=== PATIENT | female | born 1950 | race Caucasian/White ===

== ENCOUNTER → 2017-08-18 09:00 | Outpatient (CLI) | payer MEDICARE, OTHER, SELFPAY ==
--- NOTE | 2017-08-18 | DI.MRI.S_ITS ---
PROCEDURE: MR PELVIS WO CON INDICATIONS: RIGHT SIDE SCIATICA REOCCURING FRACTURES TECHNIQUE: Noncontrast coronal and axial T1 spin echo and STIR through the bony pelvis. COMPARISON: None. FINDINGS: Image quality: Excellent. Bones: Diffusely heterogeneous high STIR signal intensity is seen within the sacrum and bilateral iliac wings. No fractures identified. The visualized lower lumbar spine appears normally aligned. Tendons: The gluteus medius and minimus tendons appear intact, without associated muscle atrophy. The nearby proximal iliotibial band also appears intact. The iliopsoas tendon appears intact, without adjacent bursal fluid collections or evidence for impingement syndrome. The origin of the hamstring tendon is intact at the ischial tuberosity, as well as the associated sacrotuberous ligament. The straight and reflected heads of the rectus femoris muscle origin appear intact, as well as the conjoint tendon. Soft tissues: Visualized muscles demonstrate normal bulk and internal signal. No joint effusions. No free pelvic fluid. Bladder wall thickness is normal. Genitourinary structures and bowel loops appear normal where visualized. IMPRESSION: 1. Diffusely heterogeneous marrow signal within the osseous structures of the pelvis. While this may be related to senescent changes and atypical appearance of osteopenia, differential considerations also include a marrow infiltrating process. Clinical correlation recommended. Dictated by: Shyanne Faria M.D. on 08/18/2017 at 10:55 Approved by: Shyanne Faria M.D. on 08/18/2017 at 11:00
== END ==
PROVIDERS: Visit Provider Internal Medicine
DX: M54.32 Sciatica, left side (principal); R93.7 Abnormal findings on diagnostic imaging of other parts of musculoskeletal system
CPT/HCPCS: 72195; 77080; 77081

== ENCOUNTER → 2018-06-13 14:36 | Outpatient (CLI) | payer MEDICARE, OTHER, SELFPAY ==
[2018-06-13 16:40] LABS: Lactate Dehydrogenase 379 U/L (313-618); Magnesium 1.5 mg/dL (1.6-2.3); Phosphorous 2.5 mg/dL (2.8-4.1)
[2018-06-13 16:56] LABS: Vitamin D 25 Hydroxy (D3) 88.4 ng/mL (30.0-100.0)
[2018-06-15 13:49] LABS: Free Kappa Light Chain 32.4 mg/L (3.3-19.4); Free Kappa/ Lambda Ratio 0.39 (0.26-1.65); Free Lambda 83.8 mg/L (5.7-26.3)
[2018-06-15 18:08] LABS: Albumin 4.2 g/dL (3.8-4.8); Alpha 1 Globulin 0.3 g/dL (0.2-0.3); Alpha 2 Globulin 0.6 g/dL (0.5-0.9); Beta 1 Globulin 0.4 g/dL (0.4-0.6); Gamma Globulin 0.8 g/dL (0.8-1.7); Protein, Total 6.6 g/dL (6.1-8.1)
[2018-06-16 15:20] LABS: 1 25 Dihydroxy Vitamin D 27 pg/mL (18-72)
[2018-06-16 16:38] LABS: Parathyroid Hormone Int 39 pg/mL (14-64)
[2018-06-16 16:45] LABS: Erythropoietin 23.7 mIU/mL (2.6-18.5)
== END ==
PROVIDERS: PCP Internal Medicine; Visit Provider Internal Medicine Hematology & Oncology
DX: N64.4 Mastodynia (principal); N64.3 Galactorrhea not associated with childbirth; D75.1 Secondary polycythemia; E83.52 Hypercalcemia; Z85.528 Personal history of other malignant neoplasm of kidney
CPT/HCPCS: 36415; 81270; 82306; 82652; 82668; 82784; 83615; 83735; 83883; 83970; 84100; 84155; 84165; 86334

== ENCOUNTER → 2018-06-29 13:04 | Outpatient (CLI) | payer MEDICARE, OTHER, SELFPAY ==
--- NOTE | 2018-06-29 | DI.MRI.S_ITS ---
PROCEDURE: MR THORACIC SPINE WO CON INDICATIONS: Galactorrhea not associated with childbirth. Kidney cancer. TECHNIQUE: Noncontrast sagittal T1 spine echo and T2 fast spin echo, sagittal STIR, axial T1 and T2 fast spin echo through the thoracic spine. COMPARISON: [facility], MR, MR CERVICAL SPINE WO CON, 06/29/2018, 13:19. [facility], CR, CHEST 1 VIEW, 05/05/2012, 20:34. [facility], CT, PE STUDY (CTA CHEST), 02/22/2011, 19:58. FINDINGS: Image quality: Excellent. Alignment and Curvature: There is normal bony alignment. Bone Marrow: Marrow is of normal overall signal. No acute vertebral body compression fractures. Scattered foci are seen, which are hyperintense on T1-weighted and T2-weighted imaging, which are most consistent with benign vertebral body hemangiomas. Spinal Cord: Visualized spinal cord is normal in size and signal. Paraspinous Soft Tissues: No paravertebral masses. Incidental note is made of bilateral renal cysts, including a 2.9 cm cyst at the inferior pole of the right kidney. Miscellaneous: Lumbar spine postoperative change is partially seen. Mild age-appropriate degenerative changes are seen, with scattered levels of mild disc space narrowing with associated endplate irregularity. On axial images, central canal and foramina appear widely patent at all scanned levels. IMPRESSION: No significant thoracic spine abnormality is seen by MRI for age. Dictated by: Fareed Boston M.D. on 06/29/2018 at 14:49 Approved by: Fareed Boston M.D. on 06/29/2018 at 14:51
--- NOTE | 2018-06-29 | DI.MRI.S_ITS ---
PROCEDURE: MR CERVICAL SPINE WO CON INDICATIONS: Galactorrhea not associated with childbirth. History of kidney cancer. TECHNIQUE: Noncontrast sagittal T1 spin echo and T2 fast spin echo, sagittal STIR, foraminal oblique sagittal T2 fast spin echo, and axial gradient echo and T2 fast spin echo through the cervical spine. COMPARISON: [facility], CT, C-SPINE WITHOUT CONTRAST, 05/21/2014, 21:46. [facility], MR, MR THORACIC SPINE WO CON, 06/29/2018, 13:45. FINDINGS: Image quality: Diagnostic, with note made of motion artifact. Alignment and Curvature: There is reversal of the normal cervical lordosis. Minimal anterolisthesis is seen at C5-C6. Bone Marrow: Marrow demonstrates normal overall signal. Spinal Cord: Visualized spinal cord has normal size and signal. No cerebellar tonsillar herniation. Paraspinous Soft Tissues: No paravertebral masses. Prevertebral soft tissues are normal in thickness. C2-C3: Mild loss of disc height is seen. Loss of disc signal is seen. Mild to moderate disc osteophyte complex is seen. There is moderate to severe left-sided and moderate right-sided neural foraminal narrowing seen. Mild central canal narrowing is seen. C3-C4: Postoperative changes are seen at this level, with a fusion plate anteriorly. There is associated susceptibility artifact. Moderate generalized disc osteophyte complex is seen. Mild to moderate facet hypertrophy is seen. Mild bilateral neural foraminal narrowing is seen. Xfyg-[id number] central canal narrowing is seen. C4-C5: Moderate loss of disc height is seen. Loss of disc signal is seen. Moderate generalized disc osteophyte complex is seen. There is moderate right-sided and moderate left-sided facet hypertrophy seen. There is moderate to severe bilateral neural foraminal narrowing seen. At least moderate central canal narrowing is seen, with associated mass effect upon the ventral spinal cord. C5-C6: At least moderate loss of disc height is seen. Moderate generalized disc osteophyte complex is seen. Moderate facet joint hypertrophy is seen. There is moderate to severe bilateral neural foraminal narrowing seen. Moderate central canal narrowing is seen. C6-C7: Moderate to severe loss of disc height and disc signal are seen. Moderate to prominent disc osteophyte complex is seen, which is eccentric to the left. Uncovertebral joint hypertrophy is seen at this level. Mild to moderate facet hypertrophy is seen. There is moderate to severe bilateral neural foraminal narrowing seen, left worse than right. Moderate central canal narrowing is seen. There is associated mild mass effect upon the ventral spinal cord. C7-T1: Moderate to severe loss of disc height and disc signal are seen. Moderate to prominent disc osteophyte complex is seen. Gexa-nm-fjktxpuu facet hypertrophy is seen. There is moderate to severe bilateral neural foraminal narrowing seen. Bcgg-qs-sbhqonen central canal narrowing is seen. IMPRESSION: Multiple levels of cervical spine degenerative change are seen, including several levels of moderate to severe bilateral neural foraminal narrowing. Anterior spinal fixation hardware is seen at C3-C4. Dictated by: Fareed Boston M.D. on 06/29/2018 at 14:42 Approved by: Fareed Boston M.D. on 06/29/2018 at 14:49
== END ==
PROVIDERS: PCP Internal Medicine; Visit Provider Internal Medicine Hematology & Oncology
DX: M47.812 Spondylosis without myelopathy or radiculopathy, cervical region (principal); M48.02 Spinal stenosis, cervical region; N64.3 Galactorrhea not associated with childbirth; Z85.528 Personal history of other malignant neoplasm of kidney; Z98.1 Arthrodesis status
CPT/HCPCS: 72141; 72146

== ENCOUNTER → 2018-08-02 13:14 | Outpatient (CLI) | payer MEDICARE, OTHER, SELFPAY ==
--- NOTE | 2018-08-02 | DI.CT.S_ITS ---
PROCEDURE: CT ABDOMEN WO/W CON INDICATIONS: HISTORY OF OTHER MALIGNANT NEOPLASM OF KIDNEY TECHNIQUE: Optional 5 mm thick noncontrast images acquired from the diaphragm to the iliac crests. After the administration of intravenous contrast, 5 mm thick images again acquired from the diaphragm to the iliac crests in the arterial and urographic phases. 5 mm thick coronal and sagittal reformats were then acquired. For radiation dose reduction, the following was used: automated exposure control, adjustment of mA and/or kV according to patient size. COMPARISON: [facility], CT, PE STUDY (CTA CHEST), 02/22/2011, 19:58. FINDINGS: Image quality: Excellent. Lung bases: Lung bases are clear. Heart size is normal. Genitourinary: Previously seen enhancing or hyperdense lesion involving the anterior cortex of left kidney is no longer seen. There is a small cystic appearing focus and mild scarring in this region. Additional simple appearing bilateral renal cysts are present measuring up to 3.2 cm in the right inferior pole. No hydronephrosis. No perinephric stranding identified. No definite intraluminal filling defect seen within the visualized ureters and renal collecting systems. Other solid organs: Liver is normal in size and enhancement. Nonspecific subcentimeter hypodensity seen in the right lobe on image 15 series 5. Gallbladder unremarkable. Biliary system is non dilated. Pancreas enhances normally. Spleen is normal in size and enhancement. No adrenal nodules. Peritoneum and bowel: Unenhanced bowel loops are normal in wall thickness and caliber. No free fluid or air. Nodes and vessels: No retroperitoneal or mesenteric adenopathy by size criteria. Aorta and inferior vena cava are normal in caliber. Bones: No suspicious bony lesions. No vertebral body compression fractures. Diffuse osteopenia. Posterior spinal instrumentation. Miscellaneous: No ventral hernias. IMPRESSION: Bilateral renal cortical scarring and atrophy, as well as multiple simple appearing cysts. An enhancing/hyperdense lesion present in the anterior cortex of the left kidney is no longer visualized, resolved since the prior study dated 02/22/11. Dictated by: Kade Daniels M.D. on 08/02/2018 at 15:32 Approved by: Kade Daniels M.D. on 08/02/2018 at 15:43
--- NOTE | 2018-08-02 | DI.MRI.S_ITS ---
PROCEDURE: MR HEAD/BRAIN WO/W CON INDICATIONS: HISTORY OF OTHER MALIGNANT NEOPLASM OF KIDNEY TECHNIQUE: Noncontrast axial T1 spin echo, axial T2 fast spin echo, sagittal and axial FLAIR, coronal T2 fast spin echo, axial gradient echo, axial diffusion and ADC through the brain. After the administration of contrast, axial and coronal T1 spin echo with fat saturation through the brain. COMPARISON: [facility], MR, BRAIN WITHOUT CONTRAST, 04/09/2008, 16:34. FINDINGS: Image quality: Diagnostic, with note made of motion artifact. CSF spaces: Basal cisterns are patent. No extra-axial fluid collections. Ventricles are normal in size and shape. Brain: In this patient with this given history, scrutiny is given to the pituitary gland. The limits of this stone protocol examination, no pituitary abnormality is detected in No midline shift. No intracranial bleeds or masses. No abnormal intracranial enhancement. There is cerebral volume loss for age. There is periventricular white matter chronic small vessel ischemic change. The brainstem appears normal. Diffusion-weighted images demonstrate no acute ischemic insults. No chronic ischemic insults. Normal intravascular flow voids are present. Note is made of a cavum septum pellucidum. When discovered in isolation, this is considered to be a developmental variant of no clinical consequence. Skull and face: Calvarial marrow is normal in signal. Orbits appear normal. Sinuses: Sinuses and mastoids appear clear. IMPRESSION: No imaging explanation is found for this patient's presenting symptoms. Dictated by: Fareed Boston M.D. on 08/02/2018 at 14:45 Approved by: Fareed Boston M.D. on 08/02/2018 at 14:47
[2018-08-02 13:50] LABS: Alanine Aminotransferase 23 IU/L (9-52); Albumin 4.3 g/dL (3.5-5.0); Albumin Globulin Ratio 1.4 (1.0-2.8); Alkaline Phosphatase 133 U/L (38-126); Aspartate Aminotransferase 26 IU/L (14-36); Bilirubin Total 0.7 mg/dL (0.2-1.3); Blood Urea Nitrogen 32 mg/dL (7-17); Carbon Dioxide 26 mmol/L (22-32); Chloride 101 mmol/L (98-107); Estimated Glomerular Filt Rate 55.1 mL/min (>60); Glucose 107 mg/dL (80-110); HEMOLYSIS 22 (0-50); Potassium 4.6 mmol/L (3.4-5.1); Sodium 137 mmol/L (137-145); Total Protein 7.3 g/dL (6.3-8.2)
== END ==
PROVIDERS: Family Provider Internal Medicine Nephrology; PCP Internal Medicine; Referring Provider Orthopaedic Surgery; Visit Provider Internal Medicine Hematology & Oncology
DX: D49.512 Neoplasm of unspecified behavior of left kidney (principal); N28.1 Cyst of kidney, acquired; D75.1 Secondary polycythemia; R56.9 Unspecified convulsions; Z85.528 Personal history of other malignant neoplasm of kidney
CPT/HCPCS: 36415; 70553; 74170; 80053; Q9967

== ENCOUNTER → 2020-10-02 10:14 | Outpatient (CLI) | payer MEDICARE, OTHER, SELFPAY ==
[2020-10-02 11:50] LABS: COVID19 -Nasal RAPID Negative (Negative)
== END ==
PROVIDERS: Family Provider Internal Medicine Nephrology; PCP Internal Medicine; Visit Provider Physician Assistant
DX: Z01.812 Encounter for preprocedural laboratory examination (principal); Z20.822 Contact with and (suspected) exposure to COVID-19
CPT/HCPCS: 87635; C9803

== ENCOUNTER 2020-10-04 11:26 | Day surgery (SDC) | payer MEDICARE, OTHER, SELFPAY ==
--- NOTE | 2020-10-04 | DI.RAD.S_ITS ---
PROCEDURE: XR ANKLE RT MIN 3V INDICATIONS: RIGHT ANKLE ORIF TECHNIQUE: Fluoroscopic images were obtained during an operative procedure and submitted for interpretation following the completion of the procedure. COMPARISON: [facility], CR, XR ANKLE 3+ VIEWS RIGHT, 09/20/2020, 22:00. [facility], CR, XR TIBIA FIBULA RIGHT, 09/26/2020, 15:35. [facility], CR, XR ANKLE 3+ VIEWS RIGHT, 09/26/2020, 15:37. [facility], CR, XR FOOT 3+ VIEWS RIGHT, 10/02/2020, 16:06. FINDINGS: These fluoroscopic images were performed for intraoperative localization. On these images, plate and screw fixation is seen right distal fibula. There is a syndesmotic screw. Two screws are also seen within the medial malleolus. There is improved anatomic alignment. Please correlate with intraoperative findings. IMPRESSION: Normal intraoperative examination. Dictated by: Fareed Boston M.D. on 10/04/2020 at 16:27 Approved by: Fareed Boston M.D. on 10/04/2020 at 16:28
[2020-10-04 12:32] VITALS: BP 154/79; PULSE 96; RESP 20; TEMP 37.3; O2SAT 96; BMI 18.6
[2020-10-04] MEDS: LACTATED RINGERS 1,000 ML 42 ML IV (13:04)
[2020-10-04] MEDS: ACETAMINOPHEN 325 MG TABLET 975 MG PO (13:07)
[2020-10-04] MEDS: CELECOXIB 200 MG CAPSULE 400 MG PO (13:07)
--- NOTE | 2020-10-04 15:07 | PM.PREOP ---
Pre-operative Note COVID-19 COVID-19 status: Negative Interval Note History & Physical reviewed/Exam performed by Physician: Yes Changes to H&P: No
[2020-10-04] MEDS: CEFAZOLIN 1 GM VIAL 2 GM IV (16:05)
--- NOTE | 2020-10-04 16:14 | PM.PROC.1 ---
Procedures Date/Time Date of procedure: 10/04/20 Time of procedure: 15:44 Nerve Block Time out performed: Yes Local anesthetic used: bupivacaine 0.5% Location of anesthetic used: RIGHT Amount of anesthesia used (mL): 15 Nerve blocks: peroneal (popliteal) Procedure successful: Yes Patient tolerated procedure: well and no complications Complications: none Additional comments: Popliteal nerve block performed for post-op pain control at surgeon request. Patient was positioned with IV, O2, monitors and rescue meds available. Prepped and timeout performed. Target identified with continuous ultrasound guidance. 15mL of bupivicaine 0.5% was injected perineurally with intermittent aspiration and injection. No blood, no paresthesias, no acute complications.
--- NOTE | 2020-10-04 16:15 | PM.PROC.1 ---
Procedures Date/Time Date of procedure: 10/04/20 Time of procedure: 15:47 Nerve Block Time out performed: Yes Local anesthetic used: bupivacaine 0.5% Location of anesthetic used: RIGHT Amount of anesthesia used (mL): 15 Nerve blocks: femoral (adductor canal) Procedure successful: Yes Patient tolerated procedure: well and no complications Complications: none Additional comments: Adductor canal nerve block performed for post-op pain control at surgeon request. Patient was positioned with IV, O2, monitors and rescue meds available. Prepped and timeout performed. Target identified with continuous ultrasound guidance. 15mL of bupivicaine 0.5% was injected perineurally with intermittent aspiration and injection. No blood, no paresthesias, no acute complications.
--- NOTE | 2020-10-04 16:57 | SUR.PREOP ---
Block start time [1541] . Monitoring initiated and maintained throughout procedure. Oxygen and medications given per anesthesiologist instructions. Patient remained stable throughout procedure, no adverse reactions noted. Block end time [1545].
--- NOTE | 2020-10-04 17:44 | PM.OP.1 ---
Operative Date/Time/Diagnoses Date of procedure: 10/04/20 Time of procedure: 16:20 Pre-op diagnosis: Right trimalleolar ankle fracture s82.851a Osteoporosis-with pathologic fracture Post-op diagnosis: same Procedure & Clinicians Procedure: 1. Open reduction internal fixation right trimalleolar ankle fracture without fixation posterior lip CPT code 16172 2. Open reduction internal fixation syndesmosis CPT code 15290 Same procedure as scheduled: Yes Indications: Patient is a 70-year-old female with multiple medical problems that sustained a nondisplaced ankle fracture that went on to displacement after week of weight-bearing. She is extremely osteoporotic and has a history of multiple fractures. Also has a history of epilepsy and takes chronic medication for this. She is indicated for operative reduction of her displaced trimalleolar ankle fracture to reduce the Marie is and allow healing with reduced risk of a malunion dysfunction. The risks and benefits of the procedure have been discussed with the patient even opportunity to ask questions. The risks of surgery include but are not limited to infection, malunion, nonunion, persistence of pain, damage to nerves and blood vessels, posttraumatic arthritis, DVT, PE, cardiopulmonary complications and . The patient expressed a thorough understanding of the risks and benefits of surgery and has elected to proceed. Consent was signed in the office. Her is her primary advertising coordinator. Surgeon: Sheeba Stokes Click Yes if Unassisted: Yes Anesthesia Type: General and Peripheral nerve block Operative Notes Findings: Displaced trimalleolar ankle fracture very small posterior malleolus fracture this was treated closed with syndesmotic fixation for additional stability. Ankle was extremely osteoporotic with very soft bone to even gloved finger touch. Therefore locking plate and screw fixation was indicated. Lateral malleolus fracture was reduced and stabilized with a 6 hole lateral locking plate from the Arthrex set. Medial malleolus was fixed with 2 cancellous screws. And a locking screw was placed through the syndesmosis for additional stability. There was almost no bite noted on drilling of the syndesmotic fixation therefore locking screw was selected. Closure Type: primary Specimen(s): none sent Prosthetic devices, grafts, tissues, transplants, or devices: Arthrex 6 hole lateral locking plate right locking screws distally and proximally. A cortical screw was attempted in the shaft but pulled directly out the locking screws were used in entirety. 2 x 4.0 cannulated screws medially for the medial malleolus fracture. Estimated Blood Loss (mL): 15 Blood products transfused: none Tourniquet time (min): 58 Procedure in detail: Procedure in detail: In the preoperative holding area, the appropriate limb and sites were marked, consent was again reviewed with the patient and all questions answered. Patient underwent a regional anesthetic block with the anesthesia team for postoperative pain control. The patient was brought to the operating room, placed on the operating table and given anesthetic. Following successful levels of anesthesia, the patient was appropriately padded, position secured to the table. Supine position. An SCD was placed on the contralateral leg. All bony prominences were well padded. A well-padded thigh tourniquet was placed. The surgical leg was then prepped and draped in the usual sterile fashion. A formal time-out procedure was completed confirming the patient, site and side of surgery and administration of appropriate preoperative antibiotics. All were in agreement. An Esmarch bandage was utilized to exsanguinate the limb and the tourniquet was raised on the thigh to 250 mmHg. Lateral incision was made just posterior to the fibula. Dissection was carried through the skin and subcutaneous tissue to the level of the fibula. The fracture was exposed and cleaned of debris. Fracture was reduced, restoring length rotation and anatomic alignment. This was an extremely osteoporotic distal fibula fracture the bone addended even to gloved finger touch. This was stabilized with 6 hole Arthrex locking lateral plate. Appropriate implant positioning was confirmed on intraoperative fluoro. Medial malleolus fixation: Attention was then turned to the medial side of the joint. A standard medial approach to the medial malleolus as it. The periosteum was reflected at the fracture site and this was cleaned and reduced with a pointed reduction clamp. Two parallel K-wires were then placed and alignment checked on x-ray to confirm adequate position. The wires were then sequentially overdrilled and (2) 4.0mm cannulated screws were placed. The reduction was stable. Syndesmosis stabilization: Attention was then turned to the syndesmosis. Since the posterior malleolus fracture was small this was treated closed. Therefore syndesmotic fixation was placed for additional stability in this osteoporotic patient. Drill was placed from the fibula through the tibia through 4 cortices and measured. There was almost no bite demonstrated going through the 4 cortices and it was felt that a a cortical screw would be extremely loose and nonfunctional therefore technique was switched to a locking screw. Unfortunately these plate only works with a locking guide in 1 direction therefore the locking guide was placed and this was read drilled. This was in a more posterior direction but did get bony purchase in the posterior part of the fibula which was felt to be adequate. A 40 mm locking screw was then placed. Stability was confirmed under fluoro. The wounds were irrigated. We were quite satisfied with result clinically and radiographically. The tourniquet was released, and hemostasis achieved. The deep tissue was closed with 2 O Vicryl. Subcutaneous tissue was closed with 4 0 Monocryl in the skin with 3 O nylon. A sterile bulky dressing and below knee splint were applied. All counts were correct. The patient was then awoken and transported to recovery room in good condition. There no known immediate complications from this procedure. Post-operative Condition: stable Disposition: PACU Plan for aftercare: Nonweightbearing right ankle. If healing well at 2 weeks may start some early weight-bearing but 1st 2 weeks should focus on elevation above the heart level as much as possible for wound healing and minimal foot down for transfers. But may rest foot on the ground for balance/transfer. Aspirin for DVT prophylaxis.
[2020-10-04 17:52] VITALS: BP 136/67; PULSE 90; RESP 16; TEMP 36.7; O2SAT 98
[2020-10-04 17:57] VITALS: BP 136/67; PULSE 93; RESP 14; O2SAT 99
== END 2020-10-04 18:28 | disposition home or self-care (01) ==
PROVIDERS: Family Provider Internal Medicine Nephrology; PCP Internal Medicine; Referring Provider Orthopaedic Surgery Foot and Ankle Surgery; Visit Provider Orthopaedic Surgery Foot and Ankle Surgery
PROC: 0SSF04Z Reposition Right Ankle Joint with Internal Fixation Device, Open Approach (ICD-10-PCS; CPT 27829; principal; 2020-10-04 13:15)
DX: S82.851A Displaced trimalleolar fracture of right lower leg, initial encounter for closed fracture (principal); M80.071A Age-related osteoporosis with current pathological fracture, right ankle and foot, initial encounter for fracture; G89.29 Other chronic pain; G40.909 Epilepsy, unspecified, not intractable, without status epilepticus; Z91.81 History of falling; K21.9 Gastro-esophageal reflux disease without esophagitis; Z87.310 Personal history of (healed) osteoporosis fracture
CPT/HCPCS: 27829; 64450; 73610; 76000; J0690; J1100; J2405; J2704; J3010

== ENCOUNTER 2021-01-26 15:18 | Emergency (ER) | payer MEDICARE, OTHER, SELFPAY ==
[2021-01-26] VITALS (24 sets, daily range): BP systolic 133–209; BP diastolic 56–100; PULSE 81–99; RESP 12–26; TEMP 36.9; O2SAT 87–100; BMI 17.4
--- NOTE | 2021-01-26 15:45 | DI.CT.S_ITS ---
PROCEDURE: CT STROKE INDICATIONS: right hemineglect with seizure TECHNIQUE: Noncontrast 4.5 mm thick angled axial sections acquired from the foramen magnum to the vertex, with coronal reformats. For radiation dose reduction, the following was used: automated exposure control, adjustment of mA and/or kV according to patient size. COMPARISON: None. FINDINGS: Image quality: There is extensive motion artifact limiting evaluation. CSF spaces: Basal cisterns are patent. No extra-axial fluid collections. There is mild cerebral volume loss, with resultant ventricular and sulcal prominence. Brain: There is an intraparenchymal hematoma within the left external capsule measuring up to approximately 3.6 x 1.8 cm in transverse dimension. No definite associated midline shift or transtentorial herniation. There are subcortical, periventricular and deep white matter hypodensities consistent with moderate chronic small vessel ischemic changes. The zuñiga-white matter junction appears preserved. There is intracranial internal carotid artery atherosclerosis. Skull and face: Calvarium and visualized facial bones appear intact, without suspicious lesions. Sinuses: Visualized sinuses and mastoids are clear. IMPRESSION: 1. Intraparenchymal hematoma demonstrated within the left external capsule suggestive of a hypertensive hemorrhage. Findings discussed with Dr. Collins on 01/26/2021 at 4:00 p.m.. 2. Moderate chronic white matter small vessel ischemic changes and mild cerebral volume loss. This study fulfills neurological imaging criteria for inclusion or exclusion of acute stroke therapies based on available published neurological guidelines. Dictated by: Warren Rod M.D. on 01/26/2021 at 15:59 Approved by: Warren Rod M.D. on 01/26/2021 at 16:03
--- NOTE | 2021-01-26 16:03 | ED.NEUROSD ---
HPI - Neuro Symptoms/Deficit <Treva Karina, DO - Last Filed: 01/26/21 18:44> General Chief Complaint: Neuro Symptoms/Deficit Stated Complaint: SEZUIRES LOST USE OF RIGHT SIDE Time Seen by Provider: 01/26/21 15:45 Source: patient Mode of arrival: Wheelchair Limitations: no limitations History of Present Illness HPI Narrative: Patient is a 70-year-old female history of seizures, hypertension, chronic pain presenting today after seizures. states that she had 2 seizures last night the 1st was at about 8:15 p.m. had a 2nd was at around 4:00 a.m.. He says since the 4:00 a.m. she really has not moved her right side she is extremely weak she remains confused. He said this is atypical for her. He said between the 2 seizures she was postictal but seem to be normal however they were sleeping. She does take aspirin daily but no anticoagulation. decided to bring her in when she really was not able to transfer in help with the bathroom. He said he has Carry her. She has some obvious right-sided deb-neglect and not moving her right side. On Anticoagulants: No Related Data Home Medications Medication Instructions Recorded Confirmed acyclovir 200 mg capsule (Zovirax) 200 mg PO Q DAY #0 07/15/10 01/26/21 esomeprazole magnesium 40 mg 40 mg PO BID #0 07/15/10 10/01/20 capsule,delayed release (Nexium) ethosuximide 250 mg capsule 250 mg PO BID #0 07/15/10 01/26/21 felbamate 400 mg tablet (Felbatol) 800 mg PO BID #0 07/15/10 01/26/21 acetaminophen 500 mg tablet 500 mg PO Q4H PRN #0 05/05/12 10/01/20 (Acetaminophen Extra Strength) esomeprazole magnesium 40 mg 20 mg PO DAILY #0 05/05/12 10/04/20 capsule,delayed release (Nexium) potassium chloride 10 mEq 10 meq PO QDAY #0 05/05/12 10/01/20 tablet,extended release amlodipine 10 mg tablet 10 mg PO DAILY 10/04/20 01/26/21 atorvastatin 20 mg tablet 20 mg PO DAILY 10/04/20 01/26/21 docusate sodium 100 mg capsule 100 mg PO BID 10/04/20 01/26/21 (Dulcolax Stool Softener (docusate)) duloxetine 60 mg capsule,delayed 60 mg PO DAILY 10/04/20 01/26/21 release naproxen sodium 220 mg capsule 220 mg PO BID 10/04/20 10/04/20 (Aleve) oxycodone 10 mg tablet,extended 1 mg PO BID 10/04/20 01/26/21 release,12 hr trazodone 50 mg tablet 25 mg PO DAILY 10/04/20 01/26/21 triamterene 37.5 1 cap PO DAILY 10/04/20 01/26/21 mg-hydrochlorothiazide 25 mg capsule Vitamin D3 Complete 3,000 PO DAILY 01/26/21 ascorbic acid (vitamin C) 1,000 mg 1,000 PO 01/26/21 capsule,extended release aspirin 81 mg tablet 81 mg PO DAILY 01/26/21 01/26/21 estradiol 0.05 mg/24 hr weekly 1 patch TRANSDERMAL QWEEK 01/26/21 01/26/21 transdermal patch omeprazole 20 mg capsule,delayed 20 mg PO DAILY 01/26/21 01/26/21 release vitamin B complex 1 cap PO DAILY 01/26/21 01/26/21 Allergies Allergy/AdvReac Type Severity Reaction Status Date / Time buprenorphine Allergy Severe ridgity Verified 10/04/20 12:14 From DEPAKOTE Allergy Severe SEIZURES Uncoded 06/30/17 12:08 From KLONOPIN Allergy Severe SEIZURES Uncoded 06/30/17 12:08 From TEGRETOL Allergy Severe SEIZURES Uncoded 06/30/17 12:08 LITHIUM Allergy Severe SEIZURES Uncoded 06/30/17 12:08 From SUBOXONE Allergy Mild Uncoded 06/30/17 12:08 MORPHINE Allergy Mild ITCH Uncoded 06/30/17 12:08 TAPE Allergy Mild RASH Uncoded 06/30/17 12:08 Review of Systems <Treva Collins DO - Last Filed: 01/26/21 18:44> Review of Systems ROS Unobtainable: Unobtainable due to medical condition Hematologic/Lymphatic On Anticoagulants: No Patient History <Treva Collins DO - Last Filed: 01/26/21 18:44> Medical History (Updated 01/26/21 @ 18:42 by Treva Collins DO) Anxiety Asthma Chronic back pain Depression HTN (hypertension) Renal cell carcinoma Seizures Skin cancer Vocal cord cancer Surgical History (Updated 10/01/20 @ 14:48 by Mya Brooks RN) History of bowel resection History of History of hysterectomy History of left nephrectomy History of right nephrectomy History of spinal surgery History of surgery Social History household members: spouse Smoking Status: Former smoker alcohol intake: never Smoking Status: Former smoker Substance Use Type: opiates Exam <Treva Collins DO - Last Filed: 01/26/21 18:44> Initial Vital Signs Initial Vital Signs: Vital Signs Temperature 98.4 F 01/26/21 15:47 Pulse Rate 86 01/26/21 15:47 Respiratory Rate 16 01/26/21 15:47 Blood Pressure 209/100 H 01/26/21 15:47 Pulse Oximetry 98 01/26/21 15:47 GENERAL: A thin 70-year-old female looking to left HEENT: Head atraumatic,EOMI, pupils reactive, right-sided facial droop CARDIOVASCULAR: Regular rate and rhythm without murmurs, rubs or gallops. RESPIRATORY: Breath sounds equal bilaterally, no wheezes rales or rhonchi. ABDOMEN: Soft, nontender. Normoactive bowel sounds all 4 quadrants. No guarding or rebound. EXTREMITIES: Normal range of motion, no clubbing or edema. Neurovascularly intact NEUROLOGICAL: Alert. Right deb neglect not moving right side left-sided gaze right facial droop SKIN: Warm, dry, no laceration, no petechiae, no rashes or lesions. <Michelle Messina MD - Last Filed: 01/26/21 21:34> Initial Vital Signs Initial Vital Signs: Vital Signs Temperature 98.4 F 01/26/21 15:47 Pulse Rate 86 01/26/21 15:47 Respiratory Rate 16 01/26/21 15:47 Blood Pressure 209/100 H 01/26/21 15:47 Pulse Oximetry 98 01/26/21 15:47 <Michelle Messina MD - Last Filed: 01/26/21 21:34> Intubation Time of Intubation: 18:19 Time out performed: Yes sedative: Etomidate Mg Given: 18 paralytic: Rocuronium Laryngoscope: fiber optic video scope ET Tube Size: 7.5 ET Tube Uncuffed: No Tube Secured Depth (cm): 22 Tube Secured Location: teeth Tube Placement Confirmation: Visualized tube passing through cords, Equal breath sounds bilaterally, No breath sounds over epigastrium, Confirmation by capnometry and Chest Xray Patient Tolerated Procedure: Well Intubation Complications: none Additional Comments: indication: decreased LOC with intraparechemal bleed. Intubation by airdevan saft with immediat availablityly and assistance by me. Excellent job by airlilft staff Scores <Treva Collins DO - Last Filed: 01/26/21 18:44> GCS Roxie coma scale eye opening: Spontaneous Tamms coma scale verbal response: Sounds Tamms coma scale motor response: Obey commands Tamms coma scale total score: 12 <Michelle eMssina MD - Last Filed: 01/26/21 21:34> GCS Roxie coma scale total score: 12 Course <Treva Collins DO - Last Filed: 01/26/21 18:44> Orders Ordered: ED Orders 01/26/21 15:45 CT Stroke Stat 01/26/21 15:46 EKG-12 Lead Stat 01/26/21 15:59 COVID19 -Nasal swab/Pre-Proc Stat 01/26/21 16:10 CT angio head and neck Stat 01/26/21 16:15 Complete Blood Count AUTO DIFF Stat Comprehensive Metabolic Panel Stat Lactate (Lactic Acid) Stat Partial Thromboplastin Time Stat Prothrombin Time INR Stat Troponin & CK Cardiac Panel Stat 01/26/21 18:15 Chest [XR chest 1V] Stat Discontinued Medications Nicardipine HCl 25 mg/ Sodium (Chloride) 250 mls @ 50 mls/hr IV TITRATE FINESSE; Protocol Last Titration: 01/26/21 18:38 Dose: 0 mg/hr, 0 mls/hr Documented by: Titration: 01/26/21 17:18 Dose: 5 mg/hr, 50 mls/hr Documented by: Titration: 01/26/21 16:59 Dose: 7.5 mg/hr, 75 mls/hr Documented by: Admin: 01/26/21 16:37 Dose: 5 mg/hr, 50 mls/hr Documented by: IRIS Vital Signs Vital signs: Vital Signs - 8 hr 01/26/21 15:47 01/26/21 15:57 01/26/21 16:00 Temperature 98.4 F Pulse Rate 86 88 89 Respiratory Rate 16 26 H 12 Blood Pressure 209/100 H 202/95 H Pulse Oximetry 98 97 98 01/26/21 16:02 01/26/21 16:05 01/26/21 16:10 Temperature Pulse Rate 99 H 86 87 Respiratory Rate 18 15 16 Blood Pressure Pulse Oximetry 01/26/21 16:15 01/26/21 16:27 01/26/21 16:28 Temperature Pulse Rate 84 83 85 Respiratory Rate 14 17 16 Blood Pressure 208/96 H Pulse Oximetry 97 89 L 94 01/26/21 16:30 01/26/21 16:35 01/26/21 16:40 Temperature Pulse Rate 84 81 81 Respiratory Rate 13 17 15 Blood Pressure 203/97 H Pulse Oximetry 97 96 95 01/26/21 16:45 01/26/21 16:50 01/26/21 16:55 Temperature Pulse Rate 87 91 H 97 H Respiratory Rate 22 19 21 Blood Pressure 186/84 H 184/87 H 178/83 H Pulse Oximetry 96 90 L 87 L 01/26/21 17:00 01/26/21 17:04 01/26/21 17:05 Temperature Pulse Rate 98 H 96 H 94 H Respiratory Rate 13 17 14 Blood Pressure 175/79 H 159/67 H Pulse Oximetry 91 95 95 01/26/21 17:10 01/26/21 17:15 01/26/21 17:20 Temperature Pulse Rate 93 H 93 H 92 H Respiratory Rate 16 16 15 Blood Pressure 154/70 H 144/64 H 133/56 L Pulse Oximetry 96 96 96 01/26/21 17:25 01/26/21 17:30 01/26/21 18:47 Temperature Pulse Rate 92 H 94 H Respiratory Rate 17 19 16 Blood Pressure 146/63 H Pulse Oximetry 95 <Michelle Messina MD - Last Filed: 01/26/21 21:34> Orders Ordered: ED Orders 01/26/21 15:45 CT Stroke Stat 01/26/21 15:46 EKG-12 Lead Stat 01/26/21 15:59 COVID19 -Nasal swab/Pre-Proc Stat 01/26/21 16:10 CT angio head and neck Stat 01/26/21 16:15 Complete Blood Count AUTO DIFF Stat Comprehensive Metabolic Panel Stat Lactate (Lactic Acid) Stat Partial Thromboplastin Time Stat Prothrombin Time INR Stat Troponin & CK Cardiac Panel Stat 01/26/21 18:15 Chest [XR chest 1V] Stat Discontinued Medications Nicardipine HCl 25 mg/ Sodium (Chloride) 250 mls @ 50 mls/hr IV TITRATE FINESSE; Protocol Last Titration: 01/26/21 18:38 Dose: 0 mg/hr, 0 mls/hr Documented by: Titration: 01/26/21 17:18 Dose: 5 mg/hr, 50 mls/hr Documented by: Titration: 01/26/21 16:59 Dose: 7.5 mg/hr, 75 mls/hr Documented by: Admin: 01/26/21 16:37 Dose: 5 mg/hr, 50 mls/hr Documented by: IRIS Vital Signs Vital signs: Vital Signs - 8 hr 01/26/21 15:47 01/26/21 15:57 01/26/21 16:00 Temperature 98.4 F Pulse Rate 86 88 89 Respiratory Rate 16 26 H 12 Blood Pressure 209/100 H 202/95 H Pulse Oximetry 98 97 98 01/26/21 16:02 01/26/21 16:05 01/26/21 16:10 Temperature Pulse Rate 99 H 86 87 Respiratory Rate 18 15 16 Blood Pressure Pulse Oximetry 01/26/21 16:15 01/26/21 16:27 01/26/21 16:28 Temperature Pulse Rate 84 83 85 Respiratory Rate 14 17 16 Blood Pressure 208/96 H Pulse Oximetry 97 89 L 94 01/26/21 16:30 01/26/21 16:35 01/26/21 16:40 Temperature Pulse Rate 84 81 81 Respiratory Rate 13 17 15 Blood Pressure 203/97 H Pulse Oximetry 97 96 95 01/26/21 16:45 01/26/21 16:50 01/26/21 16:55 Temperature Pulse Rate 87 91 H 97 H Respiratory Rate 22 19 21 Blood Pressure 186/84 H 184/87 H 178/83 H Pulse Oximetry 96 90 L 87 L 01/26/21 17:00 01/26/21 17:04 01/26/21 17:05 Temperature Pulse Rate 98 H 96 H 94 H Respiratory Rate 13 17 14 Blood Pressure 175/79 H 159/67 H Pulse Oximetry 91 95 95 01/26/21 17:10 01/26/21 17:15 01/26/21 17:20 Temperature Pulse Rate 93 H 93 H 92 H Respiratory Rate 16 16 15 Blood Pressure 154/70 H 144/64 H 133/56 L Pulse Oximetry 96 96 96 01/26/21 17:25 01/26/21 17:30 01/26/21 18:47 Temperature Pulse Rate 92 H 94 H Respiratory Rate 17 19 16 Blood Pressure 146/63 H Pulse Oximetry 95 MDM - Neuro Symptoms/Deficit <Treva Karina, - Last Filed: 01/26/21 18:44> Lab Data Result diagrams: 01/26/21 16:15 01/26/21 16:15 Labs: Lab Results 01/26/21 01/26/21 01/26/21 Range/Units 15:59 16:15 16:15 WBC (4.5-11.0) X10^3/uL RBC (4.0-5.2) X10^6/uL Hgb (12.0-16.0) g/dL Hct (36-46) % MCV (80-100) fL MCH (26-34) PG MCHC (30-36) % RDW (11.6-14.8) % Plt Count (150-400) X10^3/uL Neut % (Auto) (50-75) % Lymph % (Auto) (25-40) % Stephenson % (Auto) (3-14) % Eos % (Auto) (2-4) % Baso % (Auto) (0-2) % Neut # (Auto) (8712-2044) /uL Lymph # (Auto) (1366-6439) /uL Stephenson # (Auto) (0-900) /uL Eos # (Auto) (0-450) /uL Baso # (Auto) (0-100) /uL PT (10.1-12.7) SECONDS INR (0.9-1.3) APTT (26.4-36.2) SECONDS Sodium 139 (137-145) mmol/L Potassium 3.3 L (3.4-5.1) mmol/L Chloride 99 (98-107) mmol/L Carbon Dioxide 34 H (22-32) mmol/L BUN 27 H (7-17) mg/dL Creatinine 0.97 (0.52-1.04) mg/dL Estimated GFR 56.8 L (>60) mL/min BUN/Creatinine Ratio 27.8 H (6-22) Glucose 114 H (80-110) mg/dL Lactate 0.9 (0.7-2.1) mmol/L Calcium 10.8 H (8.4-10.2) mg/dL Total Bilirubin 0.7 (0.2-1.3) mg/dL AST 40 H (14-36) IU/L ALT 35 H (<35) IU/L Alkaline Phosphatase 128 H (38-126) U/L Total Creatine Kinase 41 (30-135) U/L CK-MB (CK-2) TNP CK-MB (CK-2) Rel Index TNP Troponin I 0.017 (0.01-0.034) ng/mL Total Protein 7.5 (6.3-8.2) g/dL Albumin 4.3 (3.5-5.0) g/dL Globulin 3.2 (1.7-4.1) g/dL Albumin/Globulin Ratio 1.3 (1.0-2.8) SARS-CoV-2 (PCR) Negative (Negative) 01/26/21 01/26/21 Range/Units 16:15 16:15 WBC 8.0 (4.5-11.0) X10^3/uL RBC 4.26 (4.0-5.2) X10^6/uL Hgb 13.1 (12.0-16.0) g/dL Hct 38.7 (36-46) % MCV 91.0 (80-100) fL MCH 30.7 (26-34) PG MCHC 33.7 (30-36) % RDW 14.1 (11.6-14.8) % Plt Count 225 (150-400) X10^3/uL Neut % (Auto) 74.4 (50-75) % Lymph % (Auto) 15.0 L (25-40) % Stephenson % (Auto) 7.8 (3-14) % Eos % (Auto) 1.7 L (2-4) % Baso % (Auto) 1.1 (0-2) % Neut # (Auto) 5900 (7699-6845) /uL Lymph # (Auto) 1200 (2432-2669) /uL Stephenson # (Auto) 600 (0-900) /uL Eos # (Auto) 100 (0-450) /uL Baso # (Auto) 100 (0-100) /uL PT 11.9 (10.1-12.7) SECONDS INR 1.1 (0.9-1.3) APTT 33 (26.4-36.2) SECONDS Sodium (137-145) mmol/L Potassium (3.4-5.1) mmol/L Chloride (98-107) mmol/L Carbon Dioxide (22-32) mmol/L BUN (7-17) mg/dL Creatinine (0.52-1.04) mg/dL Estimated GFR (>60) mL/min BUN/Creatinine Ratio (6-22) Glucose (80-110) mg/dL Lactate (0.7-2.1) mmol/L Calcium (8.4-10.2) mg/dL Total Bilirubin (0.2-1.3) mg/dL AST (14-36) IU/L ALT (<35) IU/L Alkaline Phosphatase (38-126) U/L Total Creatine Kinase (30-135) U/L CK-MB (CK-2) CK-MB (CK-2) Rel Index Troponin I (0.01-0.034) ng/mL Total Protein (6.3-8.2) g/dL Albumin (3.5-5.0) g/dL Globulin (1.7-4.1) g/dL Albumin/Globulin Ratio (1.0-2.8) SARS-CoV-2 (PCR) (Negative) Point of Care Testing Glucose POC [address] scan - head: Radiologist's Impression: PROCEDURE:? CT STROKE ? INDICATIONS:? right hemineglect with seizure ? TECHNIQUE:? Noncontrast 4.5 mm thick angled axial sections acquired from the foramen magnum to the vertex, with coronal reformats.? For radiation dose reduction, the following was used:? automated exposure control, adjustment of mA and/or kV according to patient size.? ? COMPARISON:? None. ? FINDINGS:? Image quality:? There is extensive motion artifact limiting evaluation.? ? CSF spaces:? Basal cisterns are patent.? No extra-axial fluid collections.? There is mild cerebral volume loss, with resultant ventricular and sulcal prominence.? ? Brain:? There is an intraparenchymal hematoma within the left external capsule measuring up to approximately 3.6 x 1.8 cm in transverse dimension.? No definite associated midline shift or transtentorial herniation.? There are subcortical, periventricular and deep white matter hypodensities consistent with moderate chronic small vessel ischemic changes.? The driver-white matter junction appears preserved.? There is intracranial internal carotid artery atherosclerosis.? ? Skull and face:? Calvarium and visualized facial bones appear intact, without suspicious lesions.? ? Sinuses:? Visualized sinuses and mastoids are clear.? ? IMPRESSION:? ? 1. Intraparenchymal hematoma demonstrated within the left external capsule suggestive of a hypertensive hemorrhage.? Findings discussed with Dr. Collins on 01/26/2021 at 4:00 p.m.. ? 2. Moderate chronic white matter small vessel ischemic changes and mild cerebral volume loss.? ? This study fulfills neurological imaging criteria for inclusion or exclusion of acute stroke therapies based on available published neurological guidelines.? ? ? Dictated by: Warren Rod M.D. on 01/26/2021 at 15:59 ? ? Approved by: Warren Rod M.D. on 01/26/2021 at 16:03 ? CTA - brain/neck: Radiologist's Impression: PROCEDURE:? CT ANGIO HEAD AND NECK ? INDICATIONS:? bleed, [facility] request ? TECHNIQUE:? Noncontrast images were performed earlier in the day and not repeated.? ? After the administration of intravenous contrast, 1 mm thick sections acquired from the aortic arch through the [place] of [place].? Post-contrast 4.5 mm thick sections then re-acquired from the foramen magnum to the vertex.? 3-dimensional hwywkkg-rahokpifu-vxtahknubl (MIP) and/or volume rendering reformats were acquired of the central intracranial vasculature and neck separately. ? COMPARISON:? [facility], MR, MR HEAD/BRAIN WO/W CON, 08/02/2018, 14:49.? [facility], CT, HEAD WITHOUT CONTRAST, 05/05/2012, 20:16.? [facility], CT, HEAD WITHOUT CONTRAST, 05/21/2014, 21:46.? [facility], CT, HEAD WITHOUT CONTRAST, 10/31/2012, 22:57.? [facility], CT, CT STROKE, 01/26/2021, 16:53. ? FINDINGS:? Image quality:? This examination is limited by involuntary motion artifact.? ? BRAIN:? CSF spaces:? Ventricles are normal in size and shape.? Basal cisterns are patent.? No extra-axial fluid collections.? ? Brain:? Left external capsule hemorrhage is again seen.? No midline shift.? ? Driver-white matter interface appears intact.? ? Skull and face:? Calvarium and facial bones appear intact, without suspicious lesions.? Orbits appear normal.? ? Sinuses:? Sinuses and mastoids are clear.? ? HEAD CT ANGIOGRAPHY:? Anterior circulation:? Intracranial internal carotid arteries are normal in size and flow.? The flow within the paired anterior cerebral arteries is normal and symmetric.? The flow within the middle cerebral arteries is normal and symmetric.? The anterior communicating artery is seen.? No aneurysms are seen.? ? Posterior circulation:? Visualized portions of the vertebral arteries demonstrate normal caliber, and join to form a normal appearing basilar artery. There is a prominent right posterior communicating artery seen, with an accompanying diminutive right P1 segment. This is attributed to a type origin of the right posterior cerebral artery, which is considered to be a normal developmental variant of typically no clinical consequence.? Flow within the posterior cerebral arteries is normal and symmetric.? No aneurysms are seen.? ? NECK CT ANGIOGRAPHY:? Carotid system:? The great vessels demonstrate a conventional anatomy as they arise from the aortic arch.? The origins of the common carotid arteries appear patent.? The common carotid arteries demonstrate normal caliber and courses.? The bifurcation regions are both widely patent.? The internal carotid arteries demonstrate normal calibers and courses.? ? Posterior circulation:? The origins of the vertebral arteries both appear widely patent.? The more superior extracranial portions of both vertebral arteries also demonstrate normal courses and calibers.? They join to form a normal appearing basilar artery.? ? Soft tissues:? Visualized neck soft tissues demonstrate no suspicious abnormalities.? ? Bones:? No suspicious bony lesions.? Visualized cervical spine appears normally aligned.? Anterior fixation hardware is seen at the C3-C4 level.? No findings of hardware failure or hardware loosening are seen.? Relatively prominent cervical spine degenerative change can be seen.? ? ? IMPRESSION:? Stable left external capsule hemorrhage is seen.? The distribution of the hemorrhage is most consistent with hypertensive hemorrhage. ? No intracranial aneurysms are seen. ? Within the arteries of the neck, no hemodynamically significant stenosis can be seen. ? Incidental note is made of: type origin of the right posterior cerebral artery C3-C4 anterior fixation hardware Relatively prominent cervical spine degenerative change ? Any quantitative measurements of stenosis were performed using NASCET criteria.? ? ? Dictated by: Fareed Boston M.D. on 01/26/2021 at 15:53 ? ? ECG Data Interpretation: Normal sinus rhythm rate 87 LA interval 146 QRS [address] changes no T-wave inversion MDM Narrative Medical decision making narrative: Patient has signs and symptoms concerning for stroke. CT confirms hemorrhagic stroke she does take aspirin. Discussed with and daughter on the phone of goals of care. He says that she is full code. Is noted be quite hypertensive with blood pressure systolic in the 200 started on nicardipine drip. [address] Rod called with report of probable hypertension hemorrhage in the left internal capsule measuring about 3.6 cm without midline shift 1608: Dr. Soria, neurology at [facility] updated patient's symptoms test results of waiting to see images that have been pushed. This time agrees with nicardipine drip goal of blood pressure 160/110. Requested patient have a CT angio prior to transfer kit determine which team she will go to and treatment. And with his significant bed shortage they need to know. CT angio does not show any aneurysm consistent with hypertensive hemorrhage. Patient awaiting for area left. Still was able to protect airway started falling asleep becoming sonorous upon air lift arrival. Decision by air with temp myself to intubate. Dr. Michelle messina stood by and assisted. Her review notified of decreasing mental status. <Michelle Messina MD - Last Filed: 01/26/21 21:34> Lab Data Labs: Lab Results 01/26/21 01/26/21 01/26/21 Range/Units 15:59 16:15 16:15 WBC (4.5-11.0) X10^3/uL RBC (4.0-5.2) X10^6/uL Hgb (12.0-16.0) g/dL Hct (36-46) % MCV (80-100) fL MCH (26-34) PG MCHC (30-36) % RDW (11.6-14.8) % Plt Count (150-400) X10^3/uL Neut % (Auto) (50-75) % Lymph % (Auto) (25-40) % Stephenson % (Auto) (3-14) % Eos % (Auto) (2-4) % Baso % (Auto) (0-2) % Neut # (Auto) (3246-1611) /uL Lymph # (Auto) (6925-0782) /uL Stephenson # (Auto) (0-900) /uL Eos # (Auto) (0-450) /uL Baso # (Auto) (0-100) /uL PT (10.1-12.7) SECONDS INR (0.9-1.3) APTT (26.4-36.2) SECONDS Sodium 139 (137-145) mmol/L Potassium 3.3 L (3.4-5.1) mmol/L Chloride 99 (98-107) mmol/L Carbon Dioxide 34 H (22-32) mmol/L BUN 27 H (7-17) mg/dL Creatinine 0.97 (0.52-1.04) mg/dL Estimated GFR 56.8 L (>60) mL/min BUN/Creatinine Ratio 27.8 H (6-22) Glucose 114 H (80-110) mg/dL Lactate 0.9 (0.7-2.1) mmol/L Calcium 10.8 H (8.4-10.2) mg/dL Total Bilirubin 0.7 (0.2-1.3) mg/dL AST 40 H (14-36) IU/L ALT 35 H (<35) IU/L Alkaline Phosphatase 128 H (38-126) U/L Total Creatine Kinase 41 (30-135) U/L CK-MB (CK-2) TNP CK-MB (CK-2) Rel Index TNP Troponin I 0.017 (0.01-0.034) ng/mL Total Protein 7.5 (6.3-8.2) g/dL Albumin 4.3 (3.5-5.0) g/dL Globulin 3.2 (1.7-4.1) g/dL Albumin/Globulin Ratio 1.3 (1.0-2.8) SARS-CoV-2 (PCR) Negative (Negative) 01/26/21 01/26/21 Range/Units 16:15 16:15 WBC 8.0 (4.5-11.0) X10^3/uL RBC 4.26 (4.0-5.2) X10^6/uL Hgb 13.1 (12.0-16.0) g/dL Hct 38.7 (36-46) % MCV 91.0 (80-100) fL MCH 30.7 (26-34) PG MCHC 33.7 (30-36) % RDW 14.1 (11.6-14.8) % Plt Count 225 (150-400) X10^3/uL Neut % (Auto) 74.4 (50-75) % Lymph % (Auto) 15.0 L (25-40) % Stephenson % (Auto) 7.8 (3-14) % Eos % (Auto) 1.7 L (2-4) % Baso % (Auto) 1.1 (0-2) % Neut # (Auto) 5900 (3230-7917) /uL Lymph # (Auto) 1200 (3240-2675) /uL Stephenson # (Auto) 600 (0-900) /uL Eos # (Auto) 100 (0-450) /uL Baso # (Auto) 100 (0-100) /uL PT 11.9 (10.1-12.7) SECONDS INR 1.1 (0.9-1.3) APTT 33 (26.4-36.2) SECONDS Sodium (137-145) mmol/L Potassium (3.4-5.1) mmol/L Chloride (98-107) mmol/L Carbon Dioxide (22-32) mmol/L BUN (7-17) mg/dL Creatinine (0.52-1.04) mg/dL Estimated GFR (>60) mL/min BUN/Creatinine Ratio (6-22) Glucose (80-110) mg/dL Lactate (0.7-2.1) mmol/L Calcium (8.4-10.2) mg/dL Total Bilirubin (0.2-1.3) mg/dL AST (14-36) IU/L ALT (<35) IU/L Alkaline Phosphatase (38-126) U/L Total Creatine Kinase (30-135) U/L CK-MB (CK-2) CK-MB (CK-2) Rel Index Troponin I (0.01-0.034) ng/mL Total Protein (6.3-8.2) g/dL Albumin (3.5-5.0) g/dL Globulin (1.7-4.1) g/dL Albumin/Globulin Ratio (1.0-2.8) SARS-CoV-2 (PCR) (Negative) Point of Care Testing Glucose POC 119 Critical Care Time <Treva Karina, DO - Last Filed: 01/26/21 18:44> Critical Care Time Critical Care Time: Yes Total Critical Care Time: 60 Attestation: The high probability of a clinically significant, sudden or life threatening deterioration of the [cardiovascular] system(s) required my full and direct attention, intervention and personal management. The aggregate critical care time was [45] minutes. This time is in addition to time spent performing reported procedures but includes the following: [x] Data Review and interpretation [x] Patient assessment and monitoring of vital signs [x] Documentation [x] Medication orders and management Discharge Plan Departure Patient Disposition: [facility] Clinical Impression: Intracranial hemorrhage, Hypertensive emergency Prescriptions: No Action felbamate [Felbatol] 400 MG tablet 800 mg PO BID Qty: 0 RF: 0 esomeprazole magnesium [Nexium] 40 MG capsule,delayed release(DR/EC) 40 mg PO BID Qty: 0 RF: 0 ethosuximide 250 MG capsule 250 mg PO BID Qty: 0 RF: 0 acyclovir [Zovirax] 200 MG capsule 200 mg PO Q DAY Qty: 0 RF: 0 esomeprazole magnesium [Nexium] 40 MG capsule,delayed release(DR/EC) 20 mg PO DAILY Qty: 0 RF: 0 potassium chloride 10 MEQ tablet extended release 10 meq PO QDAY Qty: 0 RF: 0 acetaminophen [Acetaminophen Extra Strength] 500 mg Tablet 500 mg PO Q4H PRN (Reason: Pain) Qty: 0 RF: 0 atorvastatin 20 mg Tablet 20 mg PO DAILY RF: 0 trazodone 50 mg Tablet 25 mg PO DAILY RF: 0 amlodipine 10 mg Tablet 10 mg PO DAILY RF: 0 docusate sodium [Dulcolax Stool Softener (dss)] 100 mg Capsule 100 mg PO BID RF: 0 oxycodone 10 mg Tablet Extended Release 12 Hr 1 mg PO BID RF: 0 duloxetine 60 mg Capsule,Delayed Release(Dr/Ec) 60 mg PO DAILY RF: 0 naproxen sodium [Aleve] 220 mg Capsule 220 mg PO BID RF: 0 triamterene-hydrochlorothiazid 37.5-25 mg Capsule 1 cap PO DAILY RF: 0 estradiol [Estradiol Transdermal Patch] 0.05 mg/24 hr Patch Weekly 1 patch TRANSDERMAL QWEEK RF: 0 omeprazole 20 mg Capsule,Delayed Release(Dr/Ec) 20 mg PO DAILY RF: 0 Adult Aspirin 81 mg Tablet 81 mg PO DAILY RF: 0 vitamin B complex Capsule 1 cap PO DAILY RF: 0 ascorbic acid (vitamin C) 1,000 mg Capsule, Extended Release 1,000 PO RF: 0 Vitamin D3 Complete 3,000 PO DAILY RF: 0 Referrals: Janeth Feliciano MD [Primary Care Provider] -
--- NOTE | 2021-01-26 16:10 | DI.CT.S_ITS ---
PROCEDURE: CT ANGIO HEAD AND NECK INDICATIONS: ashish barriga request TECHNIQUE: Noncontrast images were performed earlier in the day and not repeated. After the administration of intravenous contrast, 1 mm thick sections acquired from the aortic arch through the [place] of [place]. Post-contrast 4.5 mm thick sections then re-acquired from the foramen magnum to the vertex. 3-dimensional cavxxku-ayiuwshdy-rlylsorvtg (MIP) and/or volume rendering reformats were acquired of the central intracranial vasculature and neck separately. COMPARISON: [facility], MR, MR HEAD/BRAIN WO/W CON, 08/02/2018, 14:49. [facility], CT, HEAD WITHOUT CONTRAST, 05/05/2012, 20:16. [facility], CT, HEAD WITHOUT CONTRAST, 05/21/2014, 21:46. [facility], CT, HEAD WITHOUT CONTRAST, 10/31/2012, 22:57. [facility], CT, CT STROKE, 01/26/2021, 16:53. FINDINGS: Image quality: This examination is limited by involuntary motion artifact. BRAIN: CSF spaces: Ventricles are normal in size and shape. Basal cisterns are patent. No extra-axial fluid collections. Brain: Left external capsule hemorrhage is again seen. No midline shift. Driver-white matter interface appears intact. Skull and face: Calvarium and facial bones appear intact, without suspicious lesions. Orbits appear normal. Sinuses: Sinuses and mastoids are clear. HEAD CT ANGIOGRAPHY: Anterior circulation: Intracranial internal carotid arteries are normal in size and flow. The flow within the paired anterior cerebral arteries is normal and symmetric. The flow within the middle cerebral arteries is normal and symmetric. The anterior communicating artery is seen. No aneurysms are seen. Posterior circulation: Visualized portions of the vertebral arteries demonstrate normal caliber, and join to form a normal appearing basilar artery. There is a prominent right posterior communicating artery seen, with an accompanying diminutive right P1 segment. This is attributed to a type origin of the right posterior cerebral artery, which is considered to be a normal developmental variant of typically no clinical consequence. Flow within the posterior cerebral arteries is normal and symmetric. No aneurysms are seen. NECK CT ANGIOGRAPHY: Carotid system: The great vessels demonstrate a conventional anatomy as they arise from the aortic arch. The origins of the common carotid arteries appear patent. The common carotid arteries demonstrate normal caliber and courses. The bifurcation regions are both widely patent. The internal carotid arteries demonstrate normal calibers and courses. Posterior circulation: The origins of the vertebral arteries both appear widely patent. The more superior extracranial portions of both vertebral arteries also demonstrate normal courses and calibers. They join to form a normal appearing basilar artery. Soft tissues: Visualized neck soft tissues demonstrate no suspicious abnormalities. Bones: No suspicious bony lesions. Visualized cervical spine appears normally aligned. Anterior fixation hardware is seen at the C3-C4 level. No findings of hardware failure or hardware loosening are seen. Relatively prominent cervical spine degenerative change can be seen. IMPRESSION: Stable left external capsule hemorrhage is seen. The distribution of the hemorrhage is most consistent with hypertensive hemorrhage. No intracranial aneurysms are seen. Within the arteries of the neck, no hemodynamically significant stenosis can be seen. Incidental note is made of: type origin of the right posterior cerebral artery C3-C4 anterior fixation hardware Relatively prominent cervical spine degenerative change Any quantitative measurements of stenosis were performed using NASCET criteria. Dictated by: Fareed Boston M.D. on 01/26/2021 at 15:53 Approved by: Fareed Boston M.D. on 01/26/2021 at 16:00
[2021-01-26 16:24] LABS: Add Manual Diff / Slide Review NO; Basophils Absolute Auto 100 /uL (0-100); Basophils Percent Auto 1.1 % (0-2); Eosinophils Absolute Auto 100 /uL (0-450); Eosinophils Percent Auto 1.7 % (2-4); Hematocrit 38.7 % (36-46); Hemoglobin 13.1 g/dL (12.0-16.0); Lymphocytes Absolute Auto 1200 /uL (1100-4500); Mean Corpuscular HGB Conc 33.7 % (30-36); Mean Corpuscular Hemoglobin 30.7 PG (26-34); Monocytes Absolute Auto 600 /uL (0-900); Monocytes Percent Auto 7.8 % (3-14); Neutrophils Absolute Auto 5900 /uL (1500-7000); Neutrophils Percent Auto 74.4 % (50-75); Platelet Count 225 X10^3/uL (150-400); Red Blood Cell Count 4.26 X10^6/uL (4.0-5.2); Red Cell Distribution Width 14.1 % (11.6-14.8)
[2021-01-26 16:30] LABS: INR 1.1 (0.9-1.3); Prothrombin Time 11.9 SECONDS (10.1-12.7)
[2021-01-26 16:33] LABS: PTT Partial Thromboplastin Tim 33 SECONDS (26.4-36.2)
[2021-01-26 16:35] LABS: Alanine Aminotransferase 35 IU/L (<35); Albumin 4.3 g/dL (3.5-5.0); Albumin Globulin Ratio 1.3 (1.0-2.8); Alkaline Phosphatase 128 U/L (38-126); Aspartate Aminotransferase 40 IU/L (14-36); BUN Creatinine Ratio 27.8 (6-22); Bilirubin Total 0.7 mg/dL (0.2-1.3); Blood Urea Nitrogen 27 mg/dL (7-17); Calcium 10.8 mg/dL (8.4-10.2); Carbon Dioxide 34 mmol/L (22-32); Chloride 99 mmol/L (98-107); Creatine Kinase 41 U/L (30-135); Estimated Glomerular Filt Rate 56.8 mL/min (>60); Globulin 3.2 g/dL (1.7-4.1); Glucose 114 mg/dL (80-110); HEMOLYSIS 27 (0-50); Lactate (Lactic Acid) 0.9 mmol/L (0.7-2.1); Potassium 3.3 mmol/L (3.4-5.1); Sodium 139 mmol/L (137-145); Total Protein 7.5 g/dL (6.3-8.2)
[2021-01-26] MEDS: NICARDIPINE 25 MG in SODIUM CHLORIDE 0.9% 240 ML 50 ML IV (16:37)
[2021-01-26 16:47] LABS: Troponin I 0.017 ng/mL (0.01-0.034)
[2021-01-26 17:00] LABS: COVID19 -Nasal RAPID Negative (Negative)
--- NOTE | 2021-01-26 18:15 | DI.RAD.S_ITS ---
PROCEDURE: XR CHEST 1V INDICATIONS: post intubation TECHNIQUE: One view of the chest was acquired. COMPARISON: [facility], , CHEST 1 VIEW, 05/05/2012, 20:34. FINDINGS: Surgical changes and devices: There is an endotracheal tube with the tip approximately 4 cm from the yuri. A nasogastric tube is present with the tip in the mid to distal esophagus. Lungs and pleura: Lungs are clear. No pleural effusions or pneumothorax. Mediastinum: Mediastinal contours appear normal. Heart size is normal. Bones and chest wall: No suspicious bony lesions. Overlying soft tissues appear unremarkable. IMPRESSION: 1. Endotracheal tube demonstrated in appropriate position. 2. Nasogastric tube demonstrated in the mid to distal esophagus. Recommend further advancement into the stomach. Findings discussed with Dr. Bradford on 01/26/2021 at 6:36 p.m.. Dictated by: Warren Rod M.D. on 01/26/2021 at 18:33 Approved by: Warren Rod M.D. on 01/26/2021 at 18:37
--- NOTE | 2021-01-26 18:39 | PC.NURSE ---
At 1725 patient was removed from our monitors because Flight Crew arrived. Around the time of report to flight crew, patient started to desaturate on their monitors and had a significant change in GCS from 12 at time of arrival to 8 and was no longer responding to verbal stimulus but was responding to painful stimulus. Patient had started to having snoring respirations as well. Dr Collins was notified of change of status with patient and the possibility of intubation by flight crew. Intubation was started at [address] Bradford, respiratory therapist and this RN. ET tube placement confirmed with x-ray. Patient departed from ED at 1831 and Nicardipine drip was wasted in MAY.
== END 2021-01-26 18:31 | disposition short-term general hospital (02) ==
PROVIDERS: Emergency Provider Emergency Medicine; Family Provider Internal Medicine Nephrology; PCP Internal Medicine
DX: I62.9 Nontraumatic intracranial hemorrhage, unspecified (principal); I16.1 Hypertensive emergency; Z20.822 Contact with and (suspected) exposure to COVID-19
CPT/HCPCS: 31500; 36415; 70450; 70496; 70498; 71045; 80053; 82550; 82962; 83605; 84484; 85025; 85610; 85730; 87635; 93005; 93010; 94799; 96365; 99284; 99291; 99292; C9803; Q9967

== ENCOUNTER 2021-10-19 13:04 | Emergency (ER) | payer MEDICARE, OTHER, SELFPAY ==
[2021-10-19 13:27] VITALS: BP 161/75; PULSE 97; RESP 20; O2SAT 99
--- NOTE | 2021-10-19 13:34 | DI.RAD.S_ITS ---
PROCEDURE: XR ACUTE ABDOMEN SERIES INDICATIONS: no bm in 2 weeks, vomiting TECHNIQUE: One view chest and two views of the abdomen were acquired. COMPARISON: None. FINDINGS: Surgical changes and devices: Multiple cannulated screws, right hip. Lumbar fusion hardware. Chest: Lungs are clear. Heart size is normal. No pleural effusions. No pneumoperitoneum. Abdomen: Bowel gas pattern is normal. Very large fecal load. No suspicious calcifications. Visualized solid organ contours appear normal. Bones: No suspicious bony lesions. IMPRESSION: Constipation. Dictated by: Chema Moctezuma M.D. on 10/19/2021 at 13:15 Approved by: Chema Moctezuma M.D. on 10/19/2021 at 13:16
--- NOTE | 2021-10-19 14:23 | ED_ITS ---
HPI - Abdominal Pain <LUCÍA Johnson - Last Filed: 10/19/21 17:23> General Chief Complaint: Abdominal Pain Stated Complaint: Abd pain- no bowel movements for a while Time Seen by Provider: 10/19/21 13:57 Source: patient and family Mode of arrival: Wheelchair History of Present Illness HPI narrative: 71-year-old female, former smoker, presents to the emergency department with abdominal pain and constipation x2 weeks. Patient has difficulty communicating and has been does a good job as a historian. Patient had a stroke in January 2021 that resulted in her having a PEG tube. She had surgery to remove remnants of the PEG tube shortly afterwards and the PEG tube was completely discontinued in April 2021. Patient states that her last normal bowel movement was over 4 months ago. Patient and spouse report that the only guidance they received was to periodically use MiraLax and prune juice to help with bowel movements. Patient has been so full of stool over the last couple of weeks that she has vomited after eating and drinking and also after intercourse. Patient is concerned how hard and bloated her stomach is. Related Data Home Medications Medication Instructions Recorded Confirmed acyclovir 200 mg capsule (Zovirax) 200 mg PO Q DAY ##0 07/15/10 01/26/21 esomeprazole magnesium 40 mg 40 mg PO BID ##0 07/15/10 10/01/20 capsule,delayed release (Nexium) ethosuximide 250 mg capsule 250 mg PO BID ##0 07/15/10 01/26/21 felbamate 400 mg tablet (Felbatol) 800 mg PO BID ##0 07/15/10 01/26/21 acetaminophen 500 mg tablet 500 mg PO Q4H PRN Pain ##0 05/05/12 10/01/20 (Acetaminophen Extra Strength) esomeprazole magnesium 40 mg 20 mg PO DAILY ##0 05/05/12 10/04/20 capsule,delayed release (Nexium) potassium chloride 10 mEq 10 meq PO QDAY ##0 05/05/12 10/01/20 tablet,extended release amlodipine 10 mg tablet 10 mg PO DAILY 10/04/20 01/26/21 atorvastatin 20 mg tablet 20 mg PO DAILY 10/04/20 01/26/21 docusate sodium 100 mg capsule 100 mg PO BID 10/04/20 01/26/21 (Dulcolax Stool Softener (docusate)) duloxetine 60 mg capsule,delayed 60 mg PO DAILY 10/04/20 01/26/21 release naproxen sodium 220 mg capsule 220 mg PO BID 10/04/20 10/04/20 (Aleve) oxycodone 10 mg tablet,extended 1 mg PO BID 10/04/20 01/26/21 release,12 hr trazodone 50 mg tablet 25 mg PO DAILY 10/04/20 01/26/21 triamterene 37.5 1 cap PO DAILY 10/04/20 01/26/21 mg-hydrochlorothiazide 25 mg capsule Vitamin D3 Complete 3,000 PO DAILY 01/26/21 ascorbic acid (vitamin C) 1,000 mg 1,000 PO 01/26/21 capsule,extended release aspirin 81 mg tablet 81 mg PO DAILY 01/26/21 01/26/21 estradiol 0.05 mg/24 hr weekly 1 patch transdermal QWEEK 01/26/21 01/26/21 transdermal patch omeprazole 20 mg capsule,delayed 20 mg PO DAILY 01/26/21 01/26/21 release vitamin B complex 1 cap PO DAILY 01/26/21 01/26/21 Previous Rx's Medication Instructions Recorded lactulose 20 gram/30 mL oral 20 g (30 mL) PO BID Constipation 10/19/21 solution #1,200 mL Allergies Allergy/AdvReac Type Severity Reaction Status Date / Time buprenorphine Allergy Severe ridgity Verified 10/04/20 12:14 From DEPAKOTE Allergy Severe SEIZURES Uncoded 06/30/17 12:08 From KLONOPIN Allergy Severe SEIZURES Uncoded 06/30/17 12:08 From TEGRETOL Allergy Severe SEIZURES Uncoded 06/30/17 12:08 LITHIUM Allergy Severe SEIZURES Uncoded 06/30/17 12:08 From SUBOXONE Allergy Mild Uncoded 06/30/17 12:08 MORPHINE Allergy Mild ITCH Uncoded 06/30/17 12:08 TAPE Allergy Mild RASH Uncoded 06/30/17 12:08 Review of Systems <LUCÍA Johnson - Last Filed: 10/19/21 17:23> Review of Systems Narrative: Narrative: GENERAL: Denies chills, fatigue, fever, sweats. See HPI HEENT: Denies sinus pain, ear pain, sore throat, difficulty swallowing, dizziness. RESPIRATORY: Denies dyspnea, cough, wheezing, sputum. CARDIOVASCULAR: Denies chest pain, palpitations, edema. GASTROINTESTINAL: Endorses abdominal pain, constipation and intermittent nausea. : Denies dysuria, frequency, hematuria, urinary retention, flank pain. MSK: Denies weakness, joint pain, or bony pain. SKIN: Denies rash, skin lesions, or pruritis. NEUROLOGIC: Denies weakness, dizziness, headache, numbness, confusion. PSYCHIATRIC: No concerning psychosocial issues. Patient History <LUCÍA Johnson - Last Filed: 10/19/21 17:23> Medical History Anxiety Asthma Chronic back pain Depression HTN (hypertension) Renal cell carcinoma Seizures Skin cancer Vocal cord cancer Surgical History History of bowel resection History of History of hysterectomy History of left nephrectomy History of right nephrectomy History of spinal surgery History of surgery Social History household members: spouse Smoking Status: Former smoker alcohol intake: never Smoking Status: Former smoker Substance Use Type: does not use Exam <LUCÍA Johnson - Last Filed: 10/19/21 17:23> Narrative Exam Narrative: Exam Narrative: GENERAL: This is a well-nourished, well-developed patient, in mild distress HEAD: Atraumatic. Normocephalic. EYES: Pupils equal round and reactive. Extraocular motions intact. No scleral icterus, injection or drainage. ENT: Nose without bleeding, purulent drainage. Throat without erythema, tonsillar hypertrophy or exudate. Airway patent. NECK: Trachea midline. No JVD or lymphadenopathy. Nontender. CARDIOVASCULAR: Regular rate and rhythm without murmurs, peripheral pulses intact, cap refill <2 sec. RESPIRATORY: Breath sounds equal and clear bilaterally. No wheezes, rales, or rhonchi. No cough. No increased respiratory effort. No accessory muscle use. GASTROINTESTINAL: Abdomen firm, distended and tender. No suprapubic pain. CHRISS revealed no impaction and normal rectal tone. MSK: Moves all extremities. Normal range of motion, no clubbing or edema. Neurovascularly intact. NEURO: A&O x 3. SKIN: Warm, dry, no rashes or lesions noted. Initial Vital Signs Initial Vital Signs: Vital Signs Pulse Rate 97 H 10/19/21 13:27 Respiratory Rate 20 10/19/21 13:27 Blood Pressure 161/75 H 10/19/21 13:27 Pulse Oximetry 99 10/19/21 13:27 Oxygen Delivery Method 10/19/21 13:27 Reviewed <Treva Collins DO - Last Filed: 10/20/21 07:43> Initial Vital Signs Initial Vital Signs: Vital Signs Pulse Rate 97 H 10/19/21 13:27 Respiratory Rate 20 10/19/21 13:27 Blood Pressure 161/75 H 10/19/21 13:27 Pulse Oximetry 99 10/19/21 13:27 Oxygen Delivery Method 10/19/21 13:27 Course <LUCÍA Johnson - Last Filed: 10/19/21 17:23> Orders Ordered: Discontinued Medications Sodium Biphosphate/Sodium Phosphate (Fleets Enema) 1 each [place] NOW ONE Stop: 10/19/21 15:26 Last Admin: 10/19/21 16:10 Dose: 1 each Documented By: DOE Vital Signs Vital signs: Vital Signs - 8 hr 10/19/21 13:27 10/19/21 15:24 10/19/21 15:30 Pulse Rate 97 H 84 Respiratory Rate 20 18 Blood Pressure 161/75 H 163/87 H Pulse Oximetry 99 98 Oxygen Delivery Method Room Air 10/19/21 15:30 10/19/21 16:00 10/19/21 16:00 Pulse Rate 96 H 84 Respiratory Rate 20 19 Blood Pressure 140/70 Pulse Oximetry 100 98 Oxygen Delivery Method <Treva Collins DO - Last Filed: 10/20/21 07:43> Orders Ordered: Discontinued Medications Sodium Biphosphate/Sodium Phosphate (Fleets Enema) 1 each WV NOW ONE Stop: 10/19/21 15:26 Last Admin: 10/19/21 16:10 Dose: 1 each Documented By: RLS Vital Signs Vital signs: Vital Signs - 8 hr 10/19/21 13:27 10/19/21 15:24 10/19/21 15:30 Pulse Rate 97 H 84 Respiratory Rate 20 18 Blood Pressure 161/75 H 163/87 H Pulse Oximetry 99 98 Oxygen Delivery Method Room Air 10/19/21 15:30 10/19/21 16:00 10/19/21 16:00 Pulse Rate 96 H 84 Respiratory Rate 20 19 Blood Pressure 140/70 Pulse Oximetry 100 98 Oxygen Delivery Method MDM - Abdominal Pain <Aakash LUCÍA Cutler - Last Filed: 10/19/21 17:23> Differential Diagnosis Differential diagnosis: Likely abdominal pain, constipation and small bowel obstruction Lab Data Result diagrams: 10/19/21 14:49 10/19/21 14:49 Labs: Lab Results 10/19/21 10/19/21 Range/Units 14:49 14:49 WBC 4.4 L (4.5-11.0) X10^3/uL RBC 3.76 L (4.0-5.2) X10^6/uL Hgb 12.2 (12.0-16.0) g/dL Hct 36.0 (36-46) % MCV 95.9 (80-100) fL MCH 32.4 (26-34) PG MCHC 33.8 (30-36) % RDW 13.6 (11.6-14.8) % Plt Count 183 (150-400) X10^3/uL Neut % (Auto) 46.2 L (50-75) % Lymph % (Auto) 34.8 (25-40) % Pettis % (Auto) 7.1 (3-14) % Eos % (Auto) 11.4 H (2-4) % Baso % (Auto) 0.5 (0-2) % Neut # (Auto) 2000 (0463-0355) /uL Lymph # (Auto) 1500 (6817-1530) /uL Pettis # (Auto) 300 (0-900) /uL Eos # (Auto) 500 H (0-450) /uL Baso # (Auto) 0 (0-100) /uL Sodium 140 (137-145) mmol/L Potassium 4.3 (3.4-5.1) mmol/L Chloride 108 H (98-107) mmol/L Carbon Dioxide 25 (22-32) mmol/L BUN 25 H (7-17) mg/dL Creatinine 1.03 (0.52-1.04) mg/dL Estimated GFR 58 L (>60) mL/min BUN/Creatinine Ratio 24.3 H (6-22) Glucose 109 (80-110) mg/dL Calcium 10.9 H (8.4-10.2) mg/dL Total Bilirubin 0.2 (0.2-1.3) mg/dL AST 44 H (14-36) IU/L ALT 61 H (<35) IU/L Alkaline Phosphatase 117 (38-126) U/L Total Protein 7.3 (6.3-8.2) g/dL Albumin 4.4 (3.5-5.0) g/dL Globulin 2.9 (1.7-4.1) g/dL Albumin/Globulin Ratio 1.5 (1.0-2.8) Lipase 291 (23-300) U/L Imaging Data Abdominal x-ray: Radiologist's Impression: [address] [address] XRay Report Signed Patient: Missael Julian MR#: [id number] : 1950 Acct:[id number] Age/Sex: 71 / F Date of Service: 10/19/21 Loc: ED Accession Number: [id number] ?? Procedure: XR acute abdomen series Ordering Provider: Treva Collins D.O. PROCEDURE:? XR ACUTE ABDOMEN SERIES ? INDICATIONS:? no bm in 2 weeks, vomiting ? TECHNIQUE:? One view chest and two views of the abdomen were acquired.? ? COMPARISON:? None. ? FINDINGS:? ? Surgical changes and devices:? Multiple cannulated screws, right hip.? Lumbar fusion hardware.? ? Chest:? Lungs are clear.? Heart size is normal.? No pleural effusions.? No pneumoperitoneum.? ? Abdomen:? Bowel gas pattern is normal.? Very large fecal load.? No suspicious calcifications.? Visualized solid organ contours appear normal.? ? Bones:? No suspicious bony lesions.? ? IMPRESSION:? Constipation. ? ? Dictated by: Chema Moctezuma M.D. on 10/19/2021 at 13:15 ? ? Approved by: Chema Moctezuma M.D. on 10/19/2021 at 13:16 ? CT scan - abdomen/pelvis: Radiologist's Impression: [address] [address] [address] Scan Report Signed Patient: Missael Julian MR#: [id number] : 1950 Acct:[id number] Age/Sex: 71 / F Date of Service: 10/19/21 Loc: ED Accession Number: [id number] ?? Procedure: CT abdomen pelvis wo con Ordering Provider: Aakash Cutler PROCEDURE:? CT ABDOMEN PELVIS WO CON ? INDICATIONS:? abdominal pain/ constipation ? TECHNIQUE:? After the administration of oral contrast, 5 mm thick sections acquired from the diaphragms to the symphysis.? 5 mm coronal and sagittal reformats were performed.? For radiation dose reduction, the following was used:? automated exposure control, adjustment of mA and/or kV according to patient size.? ? COMPARISON:? [facility], CR, XR ACUTE ABDOMEN SERIES, 10/19/2021, 13:45. ? FINDINGS:? Image quality:? Excellent.? ? ABDOMEN:? Lung bases:? Lung bases are clear.? Heart size is normal.? ? Solid organs:? Liver is normal in size.? Gallbladder is unremarkable without calcified gallstones noted. .? Pancreas is normal in size.? Spleen is normal in size.? No adrenal nodules.? Both kidneys are normal in size, without hydronephrosis.? 3 mm nonobstructing right middle pole stone. ? Peritoneum and bowel:? Small hiatal hernia.? Bowel loops demonstrate normal wall thickness and caliber.? Very large fecal load throughout the colon.? Moderate rectal fecal impaction.? No free fluid or air.? ? Nodes and vessels:? No retroperitoneal or mesenteric adenopathy by size crite vijay.? Aorta and inferior vena cava are normal in size.? ? Miscellaneous:? No ventral hernias.? ? ? PELVIS:? Genitourinary:? Bladder wall thickness is normal.? ? Miscellaneous:? No inguinal hernias or adenopathy.? Uterus appears to be surgically absent.? ? Bones:? No suspicious bony lesions.? No vertebral body compression fractures.? Remote right hemilaminectomy and bilateral juan and pedicle screw fixation at L2-L3.? Remote ORIF of the right hip. ? IMPRESSION:? ? 1. Moderate rectal fecal impaction with very large diffuse colonic fecal load. ? 2. Small hiatal hernia. ? 3. Nonobstructing right renal stone.? ? ? Dictated by: Chema Moctezuma M.D. on 10/19/2021 at 14:15 ? ? Approved by: Chema Moctezuma M.D. on 10/19/2021 at 14:20 ? [facility] Narrative Medical decision making narrative: 71-year-old female with complaints of abdominal pain constipation. X-ray and CT revealed large amounts of stool in the colon. CHRISS revealed no impaction. Patient was successful in having a very large bowel movement after a Fleet's enema. Patient reports improvement in pain and bloating. Will discharge patient with a prescription for lactulose and instructions for staying hydrated. Recommended patient follow-up with her family doctor for possible referral to GI, due to her long history of GI problems. Discussed plan of care and return precautions with patient and , who were agreeable with course of action. <Treva Collins, DO - Last Filed: 10/20/21 07:43> Lab Data Labs: Lab Results 10/19/21 10/19/21 Range/Units 14:49 14:49 WBC 4.4 L (4.5-11.0) X10^3/uL RBC 3.76 L (4.0-5.2) X10^6/uL Hgb 12.2 (12.0-16.0) g/dL Hct 36.0 (36-46) % MCV 95.9 (80-100) fL MCH 32.4 (26-34) PG MCHC 33.8 (30-36) % RDW 13.6 (11.6-14.8) % Plt Count 183 (150-400) X10^3/uL Neut % (Auto) 46.2 L (50-75) % Lymph % (Auto) 34.8 (25-40) % Pettis % (Auto) 7.1 (3-14) % Eos % (Auto) 11.4 H (2-4) % Baso % (Auto) 0.5 (0-2) % Neut # (Auto) 2000 (6315-8850) /uL Lymph # (Auto) 1500 (9922-3584) /uL Pettis # (Auto) 300 (0-900) /uL Eos # (Auto) 500 H (0-450) /uL Baso # (Auto) 0 (0-100) /uL Sodium 140 (137-145) mmol/L Potassium 4.3 (3.4-5.1) mmol/L Chloride 108 H (98-107) mmol/L Carbon Dioxide 25 (22-32) mmol/L BUN 25 H (7-17) mg/dL Creatinine 1.03 (0.52-1.04) mg/dL Estimated GFR 58 L (>60) mL/min BUN/Creatinine Ratio 24.3 H (6-22) Glucose 109 (80-110) mg/dL Calcium 10.9 H (8.4-10.2) mg/dL Total Bilirubin 0.2 (0.2-1.3) mg/dL AST 44 H (14-36) IU/L ALT 61 H (<35) IU/L Alkaline Phosphatase 117 (38-126) U/L Total Protein 7.3 (6.3-8.2) g/dL Albumin 4.4 (3.5-5.0) g/dL Globulin 2.9 (1.7-4.1) g/dL Albumin/Globulin Ratio 1.5 (1.0-2.8) Lipase 291 (23-300) U/L Discharge Plan Departure Patient Disposition: Home Clinical Impression: Constipation, Abdominal pain Instructions: DI for Constipation Activity Restrictions/Additional Instructions: *You have been diagnosed with partially resolved constipation. Your x-ray and CT revealed severe constipation that was partially relieved with a Fleet's enem a. I Will prescribe a oral medication that should help you to have normal bowel movements. You may start by taking this medication twice a day until you are having normal bowel movements and then reduce to once per day. As we discussed, please follow-up with your family doctor next week and consult with your family doctor for possible referral to GI. For any worsening symptoms, please feel hemalatha e to come back to the emergency department. *What to do: *Please continue to take your regular medications as directed. [x ] New medication prescriptions sent to your pharmacy: [[facility]] [ ] New medication written as a paper prescription [ ] No new medications given *Please follow up with your primary care provider in 2-3 days, call for an appointment. Let them know you were seen in the Emergency Department and that we ask that you be seen in follow up. We will electronically transmit a record of today's note if your PCP is in our system *If you do not have a primary care provider please contact the [facility] Resource line at [phone]. They will ask some questions about your medical history and help get you set up with a doctor in the community. ? Return to ER if you should have any new, worsening or concerning symptoms, such as worsening pain, severe headache, confusion, chest pain, difficulty breathing, fever greater than 101 F, shaking chills, persistent vomiting to the point that you cannot drink fluids, or other new or worsening symptoms. Prescriptions: New lactulose 20 gram/30 mL solution 20 g PO BID Qty: 1200 0RF Rx Instructions: Take 30ml by mouth at least once per day. No Action felbamate [Felbatol] 400 MG tablet 800 mg PO BID Qty: 0 esomeprazole magnesium [Nexium] 40 MG capsule,delayed release(DR/EC) 40 mg PO BID Qty: 0 ethosuximide 250 MG capsule 250 mg PO BID Qty: 0 acyclovir [Zovirax] 200 MG capsule 200 mg PO Q DAY Qty: 0 esomeprazole magnesium [Nexium] 40 MG capsule,delayed release(DR/EC) 20 mg PO DAILY Qty: 0 potassium chloride 10 MEQ tablet extended release 10 meq PO QDAY Qty: 0 acetaminophen [Acetaminophen Extra Strength] 500 mg Tablet 500 mg PO Q4H PRN (Reason: Pain) Qty: 0 atorvastatin 20 mg Tablet 20 mg PO DAILY trazodone 50 mg Tablet 25 mg PO DAILY amlodipine 10 mg Tablet 10 mg PO DAILY docusate sodium [Dulcolax Stool Softener (dss)] 100 mg Capsule 100 mg PO BID oxycodone 10 mg Tablet Extended Release 12 Hr 1 mg PO BID duloxetine 60 mg Capsule,Delayed Release(Dr/Ec) 60 mg PO DAILY naproxen sodium [Aleve] 220 mg Capsule 220 mg PO BID triamterene-hydrochlorothiazid 37.5-25 mg Capsule 1 cap PO DAILY estradiol [Estradiol Transdermal Patch] 0.05 mg/24 hr Patch Weekly 1 patch TRANSDERMAL QWEEK omeprazole 20 mg Capsule,Delayed Release(Dr/Ec) 20 mg PO DAILY Adult Aspirin 81 mg Tablet 81 mg PO DAILY vitamin B complex Capsule 1 cap PO DAILY ascorbic acid (vitamin C) 1,000 mg Capsule, Extended Release 1,000 PO Vitamin D3 Complete 3,000 PO DAILY Referrals: Dulce Do MD [Primary Care Provider] - Visit Report Forms: Patient Portal/API <Treva Collins DO - Last Filed: 10/20/21 07:43> Cosign ED Attending Cosignature Attestation: I was immediately available in the department for consultation. Documentation has been reviewed. I agree with assessment and plan.
--- NOTE | 2021-10-19 14:45 | DI.CT.S_ITS ---
PROCEDURE: CT ABDOMEN PELVIS WO CON INDICATIONS: abdominal pain/ constipation TECHNIQUE: After the administration of oral contrast, 5 mm thick sections acquired from the diaphragms to the symphysis. 5 mm coronal and sagittal reformats were performed. For radiation dose reduction, the following was used: automated exposure control, adjustment of mA and/or kV according to patient size. COMPARISON: [facility], CR, XR ACUTE ABDOMEN SERIES, 10/19/2021, 13:45. FINDINGS: Image quality: Excellent. ABDOMEN: Lung bases: Lung bases are clear. Heart size is normal. Solid organs: Liver is normal in size. Gallbladder is unremarkable without calcified gallstones noted. . Pancreas is normal in size. Spleen is normal in size. No adrenal nodules. Both kidneys are normal in size, without hydronephrosis. 3 mm nonobstructing right middle pole stone. Peritoneum and bowel: Small hiatal hernia. Bowel loops demonstrate normal wall thickness and caliber. Very large fecal load throughout the colon. Moderate rectal fecal impaction. No free fluid or air. Nodes and vessels: No retroperitoneal or mesenteric adenopathy by size criteria. Aorta and inferior vena cava are normal in size. Miscellaneous: No ventral hernias. PELVIS: Genitourinary: Bladder wall thickness is normal. Miscellaneous: No inguinal hernias or adenopathy. Uterus appears to be surgically absent. Bones: No suspicious bony lesions. No vertebral body compression fractures. Remote right hemilaminectomy and bilateral juan and pedicle screw fixation at L2-L3. Remote ORIF of the right hip. IMPRESSION: 1. Moderate rectal fecal impaction with very large diffuse colonic fecal load. 2. Small hiatal hernia. 3. Nonobstructing right renal stone. Dictated by: Chema Moctezuma M.D. on 10/19/2021 at 14:15 Approved by: Chema Moctezuma M.D. on 10/19/2021 at 14:20
[2021-10-19 15:00] LABS: Add Manual Diff / Slide Review NO; Basophils Absolute Auto 0 /uL (0-100); Basophils Percent Auto 0.5 % (0-2); Eosinophils Absolute Auto 500 /uL (0-450); Eosinophils Percent Auto 11.4 % (2-4); Hemoglobin 12.2 g/dL (12.0-16.0); Lymphocytes Absolute Auto 1500 /uL (1100-4500); Lymphocytes Percent Auto 34.8 % (25-40); Mean Corpuscular HGB Conc 33.8 % (30-36); Mean Corpuscular Hemoglobin 32.4 PG (26-34); Mean Corpuscular Volume 95.9 fL (80-100); Monocytes Absolute Auto 300 /uL (0-900); Monocytes Percent Auto 7.1 % (3-14); Neutrophils Absolute Auto 2000 /uL (1500-7000); Neutrophils Percent Auto 46.2 % (50-75); Platelet Count 183 X10^3/uL (150-400); Red Blood Cell Count 3.76 X10^6/uL (4.0-5.2); Red Cell Distribution Width 13.6 % (11.6-14.8); White Blood Cell Count 4.4 X10^3/uL (4.5-11.0)
[2021-10-19 15:11] LABS: Alanine Aminotransferase 61 IU/L (<35); Albumin 4.4 g/dL (3.5-5.0); Albumin Globulin Ratio 1.5 (1.0-2.8); Alkaline Phosphatase 117 U/L (38-126); Aspartate Aminotransferase 44 IU/L (14-36); BUN Creatinine Ratio 24.3 (6-22); Bilirubin Total 0.2 mg/dL (0.2-1.3); Blood Urea Nitrogen 25 mg/dL (7-17); Calcium 10.9 mg/dL (8.4-10.2); Carbon Dioxide 25 mmol/L (22-32); Chloride 108 mmol/L (98-107); Estimated Glomerular Filt Rate 58 mL/min (>60); Globulin 2.9 g/dL (1.7-4.1); Glucose 109 mg/dL (80-110); HEMOLYSIS < 15 (0-50); Lipase 291 U/L (23-300); Potassium 4.3 mmol/L (3.4-5.1); Sodium 140 mmol/L (137-145); Total Protein 7.3 g/dL (6.3-8.2)
[2021-10-19 15:24] VITALS: PULSE 84; RESP 18; O2SAT 98
[2021-10-19 15:30] VITALS: BP 163/87; PULSE 96; RESP 20; O2SAT 100
[2021-10-19 16:00] VITALS: BP 140/70; PULSE 84; RESP 19; O2SAT 98
[2021-10-19] MEDS: FLEETS ENEMA 1 EACH PR (16:10)
--- NOTE | 2021-10-19 17:03 | PC.NURSE ---
pt had a very large formed bowel movement after enema. PA aware
[2021-10-19 17:10] VITALS: BP 120/57; PULSE 82; O2SAT 94
== END 2021-10-19 17:27 | disposition home or self-care (01) ==
PROVIDERS: Emergency Medicine; Emergency Provider Registered Nurse; Family Provider Internal Medicine Nephrology; PCP Student in an Organized Health Care Education/Training Program
DX: K59.00 Constipation, unspecified (principal); R10.9 Unspecified abdominal pain
CPT/HCPCS: 36415; 74022; 74176; 80053; 83690; 85025; 93005; 99284